=== PATIENT | female | born 1980 | race African-American/Black ===

== ENCOUNTER 2021-03-22 18:30 | Emergency (ER) | payer OTHER ==
[~2021-03-22] VITALS: Ht 149.9 cm; Wt 70.3 kg
[2021-03-22] MEDS ORDERED: CEPHALEXIN500 MG PO (19:38)
[2021-03-22 20:16] VITALS: BP 140/94
== END 2021-03-22 20:19 | disposition home or self-care (01) ==
LOC: ER 18:30
DX: T63.461A Toxic effect of venom of wasps, accidental (unintentional), initial encounter (principal); L03.116 Cellulitis of left lower limb; J45.909 Unspecified asthma, uncomplicated; Z88.0 Allergy status to penicillin; Y92.89 Other specified places as the place of occurrence of the external cause

== ENCOUNTER 2021-08-04 12:01 | Emergency (ER) | payer OTHER ==
[~2021-08-04] VITALS: Ht 152.4 cm; Wt 74.8 kg
[~2021-08-04 12:01] MED LIST: CEPHALEXIN500 MG PO
[2021-08-04] MEDS ORDERED: AMLODIPINE BESY10 MG PO (13:00)
[2021-08-04] MEDS ORDERED: HYDRALAZINE 5050 MG PO (13:00)
[2021-08-04 13:15] LABS: ABSOLUTE NEUTROPHILS 1.7 thou/uL (1.4-8.2); BASOPHILS 1.1 % (0.0-2.0); EOSINOPHILS 3.2 % (0.0-3.0); HEMOGLOBIN 11.5 gm/dL (12.0-15.0); LYMPHOCYTES 37.5 % (24.0-44.0); MCH 23.8 pg (26.0-34.0); MCHC 32.8 g/dL (28.0-37.0); MCV 72.6 fL (80.0-100.0); MONOCYTES 10.5 % (1.0-8.0); PLATELET COUNT 446 thou/uL (150-400); POLYS 47.7 % (36.0-66.0); RBC 4.82 mil/uL (4.20-5.00); RDW 17.8 % (10.5-14.5); WBC 3.5 thou/uL (4.0-11.0)
[2021-08-04 13:22] LABS: APTT 26.9 Seconds (24.5-32.8); D-DIMER 1.19 ug/mLFEU (0.19-0.50); INR 0.91
[2021-08-04 13:34] LABS: ANISOCYTOSIS 1+; HYPOCHROMASIA 1+; MICROCYTES 1+
[2021-08-04 14:07] LABS: CALCIUM 8.8 mg/dL (8.5-10.1); CREATININE 0.8 mg/dL (0.6-1.0); POTASSIUM 3.9 mmol/L (3.5-5.1)
[2021-08-04 14:16] LABS: ALBUMIN 3.7 g/dL (3.4-5.0); TOTAL BILIRUBIN 0.4 mg/dL (0.2-1.0); TOTAL PROTEIN 8.3 g/dL (6.4-8.2)
[2021-08-04] MEDS ORDERED: ZPAK PO (17:27)
[2021-08-04] MEDS ORDERED: PREDNISONE 10 M10 M1 PO (17:27)
[2021-08-04 17:29] VITALS: BP 144/66
[2021-08-05] MEDS ORDERED: PREDNISONE 20 M20 MG PO (11:07)
--- NOTE | 2021-08-05 12:31 | EKG ---
[place] [address] [address] [facility] [place] [address] ELECTROCARDIOGRAM REPORT Name: DAKOTA TATE Room #: [facility] Azam#: [id number] Admission: 08/04/21 Attend Phys: Discharge: 08/04/21 Date of : 80 Report #: [id number] [facility] ED Test Date: 2021-08-04 Test Time: 12:10:06 Pat Name: DAKOTA TATE Department: Room: Gender: Employee Adviser: TRACE : 1980 Requested By: Lauryn Layne Order Number: [id number] MD: Andrez Izaguirre Measurements Intervals [place] Rate: 68 P: 68 [place]: 128 QRS: 13 QRSD: 81 T: 28 QT: 391 QTc: 416 Interpretive Statements Sinus rhythm No previous ECG available for comparison Electronically Signed On 08-05-2021 12:30:55 LEGAL REFEREE by Andrez Izaguirre [email or web address] <ELECTRONICALLY SIGNED> By: Andrez Izaguirre MD 08/05/21 1230 1210 1210 Andrez Izaguirre MD /EPI
== END 2021-08-04 17:29 | disposition home or self-care (01) ==
LOC: ER 12:01
PROVIDERS: Emergency Medicine; Nurse Practitioner
DX: U07.1 COVID-19 (principal); J12.82 Pneumonia due to coronavirus disease 2019; J45.909 Unspecified asthma, uncomplicated; Z86.16 Personal history of COVID-19; Z79.899 Other long term (current) drug therapy; Z88.0 Allergy status to penicillin